=== PATIENT | female | born 1995 | race American Indian/Alaskan Native ===

== ENCOUNTER 2017-02-14 09:06 | Emergency (ER) | payer MEDICAID ==
[2017-02-14 09:29] VITALS: BP 120/76; PULSE 101; RESP 18; O2SAT 100
[2017-02-14 10:29] LABS: RBC URINE 2 /hpf (0-3); URINE BACTERIA RARE (<OCC); URINE BILIRUBIN NEGATIVE (NEGATIVE); URINE BLOOD NEGATIVE (NEGATIVE); URINE COLOR Yellow (YELLOW); URINE GLUCOSE (UA) NORMAL (Normal); URINE KETONE NEGATIVE (NEGATIVE); URINE LEUKOCYTE ESTERASE NEG Leu/uL (Negative); URINE PROTEIN NEGATIVE (NEGATIVE); URINE UROBILINOGEN NORMAL mg/dL (0.2-1.0); WBC URINE 3 /hpf (0-5)
--- NOTE | 2017-02-14 10:31 | C.PDOC ---
History Of Present Illness 21 y/o female presents to the ED with complaints of intermittent abdominal tightness x1 week. Pt also reports intermittent bulging to abdominal wall. Denies nausea, vomiting, diarrhea, fever, chills, urinary symptoms, vaginal bleeding or any other complaints. LMP 09/29/16, last OB visit 01/03. Prior US (+ ) heartbeat, unable to follow up in January due to insurance issues. Time Seen by Provider: 02/14/17 10:09 Chief Complaint (Nursing): Abdominal Pain History Per: Patient History/Exam Limitations: no limitations Onset/Duration Of Symptoms: Days Current Symptoms Are (Timing): Still Present Severity: Mild Radiation Of Pain To:: None Associated Symptoms: denies: Fever, Chills, Nausea, Vomiting, Diarrhea, Urinary Symptoms Exacerbating Factors: None Alleviating Factors: None Recent travel outside of the [place]: No Abnormal Vaginal Bleeding: No Past Medical History Reviewed: Historical Data, Nursing Documentation, Vital Signs Vital Signs: Last Vital Signs Temp 98.1 F 02/14/17 12:26 Pulse 101 H 02/14/17 09:25 Resp 18 02/14/17 09:25 BP 120/76 02/14/17 09:25 Pulse Ox 100 02/14/17 12:17 - Medical History PMH: Asthma Family History: States: Unknown Family Hx - Social History Hx Alcohol Use: No Hx Substance Use: No - Immunization History Hx Tetanus Toxoid Vaccination: No Hx Influenza Vaccination: Yes Hx Pneumococcal Vaccination: No Review Of Systems Except As Marked, All Systems Reviewed And Found Negative. Constitutional: Negative for: Fever, Chills Gastrointestinal: Positive for: Abdominal Pain (tightness, intermittent bulging) . Negative for: Nausea, Vomiting, Diarrhea Genitourinary: Negative for: Dysuria, Hematuria, Vaginal Discharge, Vaginal Bleeding Physical Exam - Physical Exam Appears: Non-toxic, No Acute Distress Skin: Warm, Dry, No Rash Head: Atraumatic, Normacephalic Neck: Normal, Normal ROM, Supple Chest: Symmetrical Cardiovascular: Rhythm Regular, No Murmur Respiratory: Normal Breath Sounds, No Rales, No Rhonchi, No Wheezing Gastrointestinal/Abdominal: Normal Exam, No Tenderness, Other (gravid) Extremity: Normal ROM Extremity: Bilateral: Atraumatic Neurological/Psych: Oriented x3, Normal Speech ED Course And Treatment O2 Sat by Pulse Oximetry: 100 (room air) Pulse Ox Interpretation: Normal - CT Scan/US US OB Other Rad Studies (CT/US): Read By Radiologist, Radiology Report Reviewed CT/US Interpretation: Accession No. : [id number]. Patient Name / ID : JADA LIMON X / [id number]. Exam Date : 02/14/2017 11:19:20 ( Approved ) . Study Comment : Sex / Age : F / 21Y. Creator : Dorota Darling MD. Dictator : Dorota Darling MD. Court Collections Officer : Musical Instrument Mechanic : Dorota Darling MD. Approver2 : Report Date : 02/14/2017 12:05:48. My Comment : . OB , limited. Comparison: None available. Technique: Real- time ultrasound was performed through the pelvis. Findings: There is a single living fetus in breech presentation. Amniotic fluid volume is within normal limits. Posterior placenta. Low lying placenta approximately 1.5 cm from the os. Cervix length measures approximately 3.8 cm. Left ovary is not well visualized. There are no adnexal masses or cysts evident. Measurements and calculations: Fetus has a composite sonographic age of 19 weeks 0 days. This calculation is based on the biparietal diameter, head circumference, abdominal circumference, and femur length. Estimated heart rate 144.4 beats per min. Impression: Single living fetus with a composite sonographic age of 19 weeks 0 days. Estimated heart rate 144.4 beats per min. Low lying placenta approximately 1.5 cm from the os. The study was performed for the emergent evaluation of cramping, and the whole anatomic survey of the fetus was not performed. This should be performed on an outpatient elective basis as clinically warranted. Medical Decision Making Medical Decision Making: Plan: UA, US abdomen 1212 pm us with +iup with heartbeat. pt wiht no abdominal pain while in ED. ellen d/c with obstetrics outpatient f/u/ Disposition Counseled Patient/Family Regarding: Studies Performed, Diagnosis, Need For Followup - Disposition Referrals: [facility] [Outside] Disposition: HOME/ ROUTINE Disposition Time: 12:13 Condition: STABLE Additional Instructions: Stay well hydrated. Follow up with your industrial insulator as soon as possible or in our clinic. Return to ER for any worsening symptoms. Instructions: at 19 to 22 Weeks (ED) Forms: General Discharge Instructions - Clinical Impression Clinical Impression: and not yet delivered in second trimester - PA / DRUM STOCK CLERK / Resident Statement MD/DO has reviewed & agrees with the documentation as recorded. - Scribe Statement The provider has reviewed the documentation as recorded by the Maria Isabel Dalton All medical record entries made by the Maria Isabel were at my direction and personally dictated by me. I have reviewed the chart and agree that the record accurately reflects my personal performance of the history, physical exam, medical decision making, and the department course for this patient. I have also personally directed, reviewed, and agree with the discharge instructions and disposition.
--- NOTE | 2017-02-14 12:07 | US ---
OB , limited Comparison: None available Technique: Real-time ultrasound was performed through the pelvis. Findings: There is a single living fetus in breech presentation. Amniotic fluid volume is within normal limits. Posterior placenta. Low lying placenta approximately 1.5 cm from the os. Cervix length measures approximately 3.8 cm. Left ovary is not well visualized. There are no adnexal masses or cysts evident. Measurements and calculations: Fetus has a composite sonographic age of 19 weeks 0 days. This calculation is based on the biparietal diameter, head circumference, abdominal circumference, and femur length. Estimated heart rate 144.4 beats per min. Impression: Single living fetus with a composite sonographic age of 19 weeks 0 days. Estimated heart rate 144.4 beats per min. Low lying placenta approximately 1.5 cm from the os. The study was performed for the emergent evaluation of cramping, and the whole anatomic survey of the fetus was not performed. This should be performed on an outpatient elective basis as clinically warranted.
[2017-02-14 12:26] VITALS: TEMP 98.1
== END 2017-02-14 12:25 | disposition home or self-care (01) ==
LOC: C.ER 09:06 → MERGE 09:06 → C.ER 12:25
DX: O26.892 Other specified pregnancy related conditions, second trimester (principal); Z3A.19 19 weeks gestation of pregnancy

== ENCOUNTER 2017-07-13 09:11 | Inpatient (IN) | payer MEDICAID ==
[2017-03-21 10:15] VITALS: BMI 38.3
[2017-07-13] MEDS: Lactated Ringer's 1,000 ML IV SCH (21:20)
[2017-07-13] MEDS ORDERED: Penicillin G 5 Million Unit Vial IVPB ONE (21:32)
[2017-07-13] MEDS ORDERED: Nalbuphine 20 mg/ml Inj (1 ml) IVP PRN (21:45)
--- NOTE | 2017-07-13 21:56 | OBADHP ---
Datetime: 07/13/2017 21:48 Admit Comment, IP Provider: chief complaint-post term ; HPI 22 y/o at 41 wga here for induction of labor.patient denies vaginal bleeidng or loss of f luid.reports active movement course-low lying placenta in early ; gbs positive PMH obesity PSH denies OBGYN HX ; TOPX1 Social hx denies tobacco,alcohol or illicit drug use Exam see exam section sve /-3; adequate pelvis A/P 22 y/o at 41 wga here for induction of labor.gbs psoitive -admit -start pen G when patient starts feeling contractions -cervidil placed -monitor closely Pelvic Type - PN: Adequate Extremities - PN: Normal Abdomen - PN: Normal Back - PN: Normal Lungs - PN: Normal Heart - PN: Normal Neurologic - PN: Normal General - PN: Normal Weight - Estimated: 3200 Presentation-Admit: Vertex Contraction Comments Provider: irregular Gestation - Est Wks by US: 41.0 IP Hx Assessment: The History has been Reviewed and is Current Vital Signs Provider: Reviewed; Within Normal Limits IP Chief Complaint: Scheduled induction of labor FHR Category Provider Fetus A: Category I Dilatation, Provider: 1 Effacement, Provider: 50 Station, Provider: -3 Genitourinary Exam: Normal DTRs - PN: Normal EGA AdmitDate IP: 41.0 IP Adm Impression: Postterm, intrauterine IP Admit Plan: Admit to unit
[2017-07-13 22:38] LABS: BASO % 0.6 % (0.0-2.0); EOS # 0.2 K/uL (0.0-0.7); EOS % 2.4 % (0.0-4.0); HEMATOCRIT 32.8 % (34.0-47.0); LYMPH # 1.4 K/uL (1.0-4.3); LYMPH % 17.5 % (20.0-40.0); MEAN CELL VOLUME 72.5 fL (81.0-99.0); MEAN CORPUSCULAR HEMOGLOBIN 23.1 pg (27.0-31.0); MEAN CORPUSCULAR HGB CONC 31.8 g/dL (33.0-37.0); MEAN PLATELET VOLUME 8.7 fL (7.2-11.7); MONO # 0.8 K/uL (0.0-0.8); MONO % 10.2 % (0.0-10.0); NRBC % 0.1 % (0.0-2.0); RED CELL DISTRIBUTION WIDTH 16.4 % (11.5-14.5); WHITE BLOOD COUNT 8.2 K/uL (4.8-10.8)
[2017-07-13 22:41] LABS: CHLORIDE 100 mmol/L (98-107)
[2017-07-13 22:42] LABS: SODIUM 132 mmol/L (132-148)
[2017-07-13 22:44] LABS: AST/SGOT 12 U/L (14-36); BILIRUBIN,TOTAL 0.4 mg/dL (0.2-1.3); CARBON DIOXIDE 20 mmol/L (22-30); GFR AFRICAN-AMERICAN > 60
[2017-07-13 22:45] LABS: ALKALINE PHOSPHATASE 65 U/L (38-126); ALT/SGPT 19 U/L (9-52); BLOOD UREA NITROGEN 10 mg/dL (7-17); CALCIUM 9.1 mg/dl (8.6-10.4); GLUCOSE,RANDOM 96 mg/dL (65-105)
[2017-07-13 22:59] LABS: RBC URINE 6 /hpf (0-3); TRANSITIONAL EPITHIAL 2 /hpf (0-3); URINE BACTERIA OCC (<OCC); URINE BILIRUBIN NEGATIVE (NEGATIVE); URINE BLOOD NEGATIVE (NEGATIVE); URINE COLOR Yellow (YELLOW); URINE GLUCOSE (UA) 1+ mg/dL (Normal); URINE KETONE NEGATIVE (NEGATIVE); URINE LEUKOCYTE ESTERASE 3+ Leu/uL (Negative); URINE PROTEIN 2+ mg/dL (NEGATIVE); URINE UROBILINOGEN NORMAL mg/dL (0.2-1.0); WBC URINE 47 /hpf (0-5)
[2017-07-13] MEDS ORDERED: Nalbuphine 20 mg/ml Inj (1 ml) ONE (23:31)
[2017-07-14] MEDS ORDERED: Penicillin G 5 Million Unit Vial IVPB ONE (00:34)
[2017-07-14] MEDS ORDERED: Nalbuphine 20 mg/ml Inj (1 ml) IVP PRN (05:00)
[2017-07-14] MEDS ORDERED: Nalbuphine 20 mg/ml Inj (1 ml) ONE (05:03)
[2017-07-14] MEDS ORDERED: Nalbuphine 20 mg/ml Inj (1 ml) IVP ONE (05:05)
[2017-07-14] MEDS: Lactated Ringer's 1,000 ML IV SCH (05:30)
[2017-07-14] MEDS ORDERED: Bupivacaine 0.125%/FentaNYL 200 ML EPI ONE (07:56)
--- NOTE | 2017-07-14 09:54 | OBPN ---
Datetime: 07/14/2017 09:42 IP Progress Impression: Normal progression of labor IP Procedures: Sterile Vag Exam IP Progress Plan: Continue present management; Augmentation; Anticipate Vaginal Delivery Contraction Comments Provider: 4-7 minutes FHR - Baseline A Provider: 140 Gestation - Est Wks by US: 41.1 Presentation-Admit: Vertex IP Progress Note Comment: Patient received in LDR#1 -S/P epidural; no pain. (+) AFM. Sleepy Cervical exam - as above. Cervidil removed Assessment: 22 yo P0, 41w 1d IOL; S/P cervical ripenieng - good response. GBS (+) on penicillin. D/W patient and FOB continuing labor process with augmentation with pitocin. No questions offered. Ca tegory 1 tracing. Clinically stable. Plan: 1) Start pitocin 2) continue present management 3) Anticipate vaginal delivery Vital Signs Provider: Reviewed; Within Normal Limits NICHD Accel Fetus A IP Provider: 15X15 FHR Category Provider Fetus A: Category I NICHD Variability Prov Fetus A: Moderate 6-25bpm Dilatation, Provider: 4 Effacement, Provider: 80 Station, Provider: -1 NICHD Decel Fetus A IP Provider: None Datetime: 07/13/2017 21:48 Weight - Estimated: 3200
[2017-07-14] MEDS ORDERED: Oxytocin 30 UNIT 30 UNITS/500 ML BAG IV PRN (09:56)
[2017-07-14] MEDS ORDERED: Oxytocin 30 UNIT 30 UNITS/500 ML BAG IV ONE (10:35)
[2017-07-14] MEDS ORDERED: Sodium Citrate/Citric Acid 15 ml Sol ONE (13:46)
[2017-07-14] MEDS ORDERED: Oxytocin 20 units in LR 2,000 ML IV ONE (13:46)
[2017-07-14] MEDS ORDERED: Magnesium Sulfate 20 gm 20,000 MG/500 ML BAG IV ONE (13:46)
[2017-07-14] MEDS ORDERED: Sodium Citrate/Citric Acid 15 ml Sol PO ONE (14:00)
[2017-07-14] MEDS ORDERED: Phenylephrine 10 mg/ml Inj ONE (14:00)
[2017-07-14] MEDS ORDERED: Morphine 1 mg/ml preservative-free Inj(Duramorph) ONE (14:03)
--- NOTE | 2017-07-14 14:13 | OBPN ---
Datetime: 07/14/2017 13:29 Membranes, Provider: Ruptured Contraction Comments Provider: irregular FHR - Baseline A Provider: 150 IP Progress Note Comment: Patient received in bed; no complaints. Cervical exam: as above. Evidence of SROM noted; IUPC and ISE placed. Pitocin = 10 mUnits At end of exam. deceleration noted. Pitocin stopped; IV bolus maintained, patient on left lateral position and pateint continues with oxygen by mask Due to recurring nature of late decelerations, decision made to proceed with abdominal delivery. This was explained to patient and FOB. Potential risks and complications were discussed. No question s offered. Consents signed, witnessed, dated and placed in chart. Assessment: 22 y.o. , 41w 1d, repetitve late decelerations remote from delivery. Once pitoci n stoppped, decelrations inproved to varable in nature; variability mainained. Patient is clinically stable. Plan: 1) call center director to O.,R. 2) Mefoxin 3) Abdominal prep and shcave 4) Notify anesthesia 5) Notify pedis NICHD Accel Fetus A IP Provider: 15X15 FHR Category Provider Fetus A: Category II NICHD Variability Prov Fetus A: Moderate 6-25bpm Dilatation, Provider: 5-6 Effacement, Provider: 90 Station, Provider: 0 NICHD Decel Fetus A IP Provider: Late; Variable
[2017-07-14] MEDS ORDERED: Oxytocin 10 Units/ml Inj ONE (15:00)
[2017-07-14] MEDS ORDERED: Oxycodone/Acetaminophen 5/325 mg Tab PO PRN (16:03)
[2017-07-14] MEDS ORDERED: Sodium Chloride 0.9% 1,000 ML IV SCH ×2 (16:15→17:23)
--- NOTE | 2017-07-14 17:29 | PCM.SURG1 ---
Surgeon's Initial Post Op Note - Surgeon's Notes Surgeon: Brigid Lai MD Dairy Nutritionist: Raghav Cole MD; 2nd Dairy Nutritionist: Sara Barnes DO, PGY-1 Type of Anesthesia: Spinal Anesthesia Administered By: Chalino Morton DO Pre-Operative Diagnosis: 41 weeks gestation, Repetitive late decelerations, remote from delivery. GBS (+). Obesity. Operative Findings: Live female , ROT position, weight 8lb 8oz, 's 9/ 9. Cord pH 7.32. Normal uterus; normal fallopian tubes and ovaries, bilaterally Post-Operative Diagnosis: Same Operation Performed: Transverse lower uterine segment section Specimen/Specimens Removed: None Estimated Blood Loss: EBL {In ML}: 800 (U.O. 400 mL, clear urine. IVFs 1200 mL LR total; total of 40 Units pitocin was administered) Blood Products Given: N/A Drains Used: No Drains Post-Op Condition: Good Date of Surgery/Procedure: 07/14/17 Time of Surgery/Procedure: 15:50
[2017-07-14] MEDS: cefOXitin IV 2 gm in Dextrose 2 GM/50 ML BAG IVPB SCH (23:13)
[2017-07-15] MEDS: Oxycodone/Acetaminophen 5/325 mg Tab PO PRN ×4 (05:33→20:18)
[2017-07-15] MEDS: cefOXitin IV 2 gm in Dextrose 2 GM/50 ML BAG IVPB SCH ×2 (06:56→14:19)
[2017-07-15 08:06] LABS: BASO % 0.1 % (0.0-2.0); EOS # 0.1 K/uL (0.0-0.7); EOS % 1.4 % (0.0-4.0); HEMATOCRIT 25.9 % (34.0-47.0); LYMPH # 0.9 K/uL (1.0-4.3); MEAN CELL VOLUME 72.1 fL (81.0-99.0); MEAN CORPUSCULAR HEMOGLOBIN 23.3 pg (27.0-31.0); MEAN CORPUSCULAR HGB CONC 32.2 g/dL (33.0-37.0); MEAN PLATELET VOLUME 8.1 fL (7.2-11.7); MONO # 0.6 K/uL (0.0-0.8); MONO % 6.4 % (0.0-10.0); RED CELL DISTRIBUTION WIDTH 16.6 % (11.5-14.5); WHITE BLOOD COUNT 9.4 K/uL (4.8-10.8)
[2017-07-15 08:23] LABS: CHLORIDE 99 mmol/L (98-107); POTASSIUM 3.9 mmol/L (3.6-5.2); SODIUM 130 mmol/L (132-148)
[2017-07-15 08:26] LABS: BLOOD UREA NITROGEN 9 mg/dL (7-17); CARBON DIOXIDE 22 mmol/L (22-30); GFR AFRICAN-AMERICAN > 60; GLUCOSE,RANDOM 109 mg/dL (65-105)
[2017-07-15 08:27] LABS: CALCIUM 8.4 mg/dl (8.6-10.4)
[2017-07-15] MEDS: Simethicone 80 mg Chewtab PO PRN (09:29)
[2017-07-16] MEDS: Oxycodone/Acetaminophen 5/325 mg Tab PO PRN ×5 (00:24→22:28)
[2017-07-16] MEDS: Simethicone 80 mg Chewtab PO PRN (10:52)
[2017-07-16 16:16] VITALS: RESP 20; O2SAT 100
--- NOTE | 2017-07-16 20:07 | OBPPN ---
Datetime: 07/16/2017 08:17 PP Pain Prov: Within normal limits PP Nausea Prov: Denies PP Flatus Prov: Yes PP BM Prov: No PP Impression Prov: Normal progression PP Plan Prov: Continue present management PP Progress Note Prov: Patient seen and examined at bedside. Per nursing, no acute events overnight. Patient is doing well, pain is controlled. Lochia is moderate. Ambulating and tolerating diet. Urina ting without difficulty. Passing flatus but no BM. Bottle feeding. Denies fevers, chills, headaches, dizziness, cp, palpitations, sob, urinary symptoms. VS: 110/64 101 98.4 Gen: AAOx3 CV: RRR Lungs: CTA B/L Abd: soft, appropriately tender, fundus firm at umbilicus, incision c/d/i with hima Ext: No clubbing, cyanosis, edema; no calf tenderness Labs: 8.2>10.4/32.8<263 9.4>8.4/25.9<218 A positive Rubella immune A/P: 22 yo at 41.1 weeks s/p PLTCD 2/2 repetitive decels, remote from delivery POD#2 1. Stable, afebrile 2. Pain control - motrin and percocet prn 3. Acute blood loss anemia - ferrous sulfate BID 4. Encourage ambulation and hydration 5. Encourage ISS use 6. Contiue routine care 7. Anticipate d/c home tomorrow 8. Plan d/w attending Zhanna Mac DO PGY-1 Pt was seen and examined with Resident and I agree with the above. Vital Signs Provider PP: Reviewed Datetime: 07/15/2017 08:04 PP Breasts Prov: Normal PP Heart Prov: Normal PP Lungs Prov: Normal PP Abdomen/Uterus Prov: Normal PP Lochia Prov: Normal PP Vulva/Perineum Prov: Normal PP CVA Tenderness Prov: Normal PP Extremities Prov: Normal PP C/S Incision Prov: Normal PP Progress Prov: Normal
[2017-07-17] MEDS: Oxycodone/Acetaminophen 5/325 mg Tab PO PRN (07:31)
[2017-07-17 08:32] VITALS: BP 113/60; PULSE 92; TEMP 99.2
--- NOTE | 2017-07-17 09:34 | OBPPN ---
Datetime: 07/17/2017 08:23 PP Pain Prov: Within normal limits PP Nausea Prov: Denies PP Flatus Prov: Yes PP BM Prov: No PP Breasts Prov: Normal PP Heart Prov: Normal PP Lungs Prov: Normal PP Abdomen/Uterus Prov: Normal PP Lochia Prov: Normal PP Vulva/Perineum Prov: Normal PP CVA Tenderness Prov: Normal PP Extremities Prov: Normal PP C/S Incision Prov: Normal PP Progress Prov: Normal PP Impression Prov: Normal progression PP Plan Prov: Continue present management PP Progress Note Prov: Patient seen and examined at bedside. Per nursing, no acute events overnight. Patient is doing well, pain is controlled. Patient states she feels no pain when she is laying in be d but when she is walking around her pain increases. Lochia is moderate. Ambulating and tolerating di et. Urinating without difficulty. Passing flatus but no BM. Bottle feeding. Denies fevers, chills, he adaches, dizziness, nausea or vomiting. Gen: AAOx3 Abd: soft, appropriately tender, fundus firm at umbilicus, incision c/d/i with hima Ext: No clubbing, cyanosis, edema; no calf tenderness Labs:H/H 8.4/25.9 A positive Rubella immune A/P: 22 yo at 41.1 weeks s/p PLTCD 2/2 repetitive decels, remote from delivery POD#3 1. Stable, afebrile 2. Pain control - motrin and percocet prn 3. Acute blood loss anemia - ferrous sulfate 325mg BID 4. Encourage ambulation 5. Discharge home today 07/17 Sara Barnes DO PGY-1 Attending Note: Patient seen by me with Resident and medical student: I agree with the above wit h the exception of bilateral 2+ lower extremity edema. Patient reassured this is wnl and will resolve over the next 1 to 2 weeks. All else as above. Plan: 1) as above. Vital Signs Provider PP: Reviewed; Within Normal Limits
--- NOTE | 2017-07-17 09:37 | OBDCSUM ---
Datetime: 07/17/2017 08:23 Discharged to, Provider: Home Follow up at, Provider: [facility] Disch Instr Activity: Normal activity Disch Instr Diet: Regular Discharge Instructions, Provider: Routine instructions given Discharge Diagnosis, Provider: Term Delivered Discharge Time: 07/17/2017 11:30 Follow up in weeks, Provider: Monday07/21/17 Disch Referrals: None Contraception discussed, Prov: Yes Disch Activity Restrictions: No lifting; Minimize stair-climbing; No sexual activity; Nothing in vag vince - [place], tampons, douche Discharge Diagnosis Prov Other: Obesity Status post primary section Anemia Contraception counseling Contraception after Delivery: Undecided
[2017-07-17] MEDS: Simethicone 80 mg Chewtab PO PRN (09:45)
[2017-07-17] MEDS ORDERED: Influenza Vaccine 60 mcg/0.5 mL SYR (4YR UP) IM ONE (09:50)
== END 2017-07-17 12:45 | disposition home or self-care (01) | DRG 370 ==
LOC: C.4D 18:56 → C.4M 07-14 19:30
PROVIDERS: ADMIT Student in an Organized Health Care Education/Training Program; ATTEND Student in an Organized Health Care Education/Training Program
PROC: 10D00Z1 Extraction of Products of Conception, Low, Open Approach (ICD-10-PCS; principal; 2017-07-14)
PROC: 3E0P7VZ Introduction of Hormone into Female Reproductive, Via Natural or Artificial Opening (ICD-10-PCS; 2017-07-14)
DX: O76 Abnormality in fetal heart rate and rhythm complicating labor and delivery (principal); D62 Acute posthemorrhagic anemia; O44.43 Low lying placenta NOS or without hemorrhage, third trimester; E66.9 Obesity, unspecified; O99.214 Obesity complicating childbirth; O99.02 Anemia complicating childbirth; O12.04 Gestational edema, complicating childbirth; Z37.0 Single live birth; O48.0 Post-term pregnancy; Z3A.41 41 weeks gestation of pregnancy; O99.824 Streptococcus B carrier state complicating childbirth